=== PATIENT | male | born 1980 | race Hispanic/Latino ===

== ENCOUNTER 2019-07-30 13:31 | Emergency (ER) | payer SELFPAY ==
[~2019-07-30] VITALS: Ht 175.3 cm; Wt 86.0 kg
[2019-07-30 15:24] LABS: HEMATOCRIT 45.8 % (39.0-50.0); HEMOGLOBIN 15.6 g/dl (14.0-18.0); IMMATURE GRANULOCYTES 0.4 % (0.0-5.0); MEAN CELL VOLUME 95.6 fL CALC (80.0-100.0); MEAN CORPUSCULAR HGB 32.6 pG CALC (26.0-32.0); MEAN CORPUSCULAR HGB CONC 34.1 g/L CALC (32.0-36.0); NEUT# 6.01 thou/uL (1.82-7.42); RED BLOOD COUNT 4.79 mill/uL (4.70-6.10); RED CELL DISTRI WIDTH 12.9 % (11.5-15.5)
[2019-07-30 15:38] LABS: ALBUMIN 4.6 g/dL (3.2-5.0); ALKALINE PHOSPHATASE 61 u/l (38-126); ANION GAP 15 (6-22 (CALC)); BILIRUBIN, TOTAL 0.4 mg/dL (0.0-1.4); BUN 17 mg/dL (9-20); BUN/CREATININE RATIO 20 (12-20 (CALC)); CARBON DIOXIDE 25 mmol/l (22-30); CHLORIDE 103 mmol/l (95-108); CREATININE 0.9 mg/dL (0.7-1.3); GFR > 60 ML/MIN (>=60 (CALC)); GFR FOR AFR.AMER. > 60 ML/MIN (>=60 (CALC)); LIPASE 85 u/l (23-300); POTASSIUM 4.4 mmol/l (3.5-5.1); SGOT/AST 30 u/l (17-59); SODIUM 139 mmol/l (137-146); TOTAL PROTEIN 7.7 g/dL (6.3-8.2)
[2019-07-30 16:52] VITALS: BP 121/74
== END 2019-07-30 17:03 | disposition home or self-care (01) | DRG 605 ==
LOC: ED 13:31
PROVIDERS: Family Medicine
DX: S40.012A Contusion of left shoulder, initial encounter (principal); S40.011A Contusion of right shoulder, initial encounter; S50.01XA Contusion of right elbow, initial encounter; R07.81 Pleurodynia; W11.XXXA Fall on and from ladder, initial encounter; Y93.E9 Activity, other interior property and clothing maintenance; Y92.009 Unspecified place in unspecified non-institutional (private) residence as the place of occurrence of the external cause